=== PATIENT | male | born 1945 ===

== ENCOUNTER 2018-08-12 07:48 | Outpatient (CLI) | payer OTHER ==
[~2018-08-12] VITALS: Ht 160 cm; Wt 65.8 kg
[2018-08-12] MEDS ORDERED: FLONASE16 GM NASAL (10:54)
[2018-08-12] MEDS ORDERED: MUCINEX600 MG PO (10:55)
== END 2018-08-12 08:10 | disposition home or self-care (01) ==
LOC: OFIC 805 07:48
DX: K11.1 Hypertrophy of salivary gland (principal); H69.83 Other specified disorders of Eustachian tube, bilateral; J31.0 Chronic rhinitis; R22.1 Localized swelling, mass and lump, neck